=== PATIENT | male | born 1980 | race Caucasian/White ===

== ENCOUNTER 2019-06-05 12:42 | Emergency (ER) | payer OTHER ==
--- NOTE | 2019-06-05 13:48 | ED ---
Back Pain - HPI Summary HPI Summary: The patient is a 38 y/o M presenting to [facility] with a chief complaint of sudden onset lower back pain onset two days ago. He reports that he was making the bed and is unsure what happened but had sudden onset low midline back pain that caused inability to walk yesterday, but he was able to get up today. The pain does not radiate into his legs, but it is aggravated with standing and alleviated with sitting. Currently while sitting his pain is rated 4/10 in severity but increases to 10/10 with movement. He denies any difficulty urinating or passing stool, fevers, chills, or numbness or weakness in the lower extremities. He has used Ibuprofen and Tylenol for pain treatment to little relief. No PMHx. Nonsmoker, rare EtOH, no substance use. Medications reviewed. Allergies noted. - History of Current Complaint Chief Complaint: EDBackInjuryPain Stated Complaint: BACK PAIN Time Seen by Provider: 06/05/19 13:36 Hx Obtained From: Patient Onset/Duration: Sudden Onset, Lasting Days - two, Still Present Onset/Duration: Started Days Ago, Still Present Back Pain Location: Is Discrete @ - lower back Severity Initially: Severe Severity Currently: Moderate Pain Intensity: 4 - while sitting at rest Pain Scale Used: 0-10 Numeric Character: Sharp Aggravating Symptom(s): Movement - sitting to standing Alleviating Symptom(s): Rest Associated Signs And Symptoms: Negative: Fever, Weakness, Numbness, Other - chills, difficulty urinating or passing stool - Allergies/Home Medications Allergies/Adverse Reactions: Allergies Allergy/AdvReac Type Severity Reaction Status Date / Time No Known Allergies Allergy Verified 06/05/19 13:02 PMH/Surg Hx/FS Hx/Imm Hx Endocrine/Hematology History: Denies: Hx Diabetes Cardiovascular History: Denies: Hx Hypercholesterolemia, Hx Myocardial Infarction - Surgical History Surgical History: None Surgery Procedure, Year, and Place: none Infectious Disease History: No Infectious Disease History: Denies: Traveled Outside the [place] in Last 30 Days - Family History Known Family History: Negative: Cardiac Disease, Hypertension, Diabetes - Social History Alcohol Use: Rare Hx Substance Use: No Substance Use Type: Reports: None Hx Tobacco Use: No Smoking Status (MU): Never Smoked Tobacco Review of Systems Negative: Fever, Chills Negative: Other - inability to pass stool Negative: other - inability to urinate Positive: Other - low back pain causing pain with ambulation Negative: Weakness - in lower extremities, Numbness - in lower extremites All Other Systems Reviewed And Are Negative: Yes Physical Exam - Summary Physical Exam Summary: VITAL SIGNS: Reviewed. GENERAL: Patient is a well-developed and nourished male who is lying comfortable in the stretcher. Patient is not in any acute respiratory distress. HEAD AND FACE: No signs of trauma. No ecchymosis, hematomas or skull depressions. No sinus tenderness. EYES: PERRLA, EOMI x 2, No injected conjunctiva, no nystagmus. EARS: Hearing grossly intact. Ear canals and tympanic membranes are within normal limits. MOUTH: Oropharynx within normal limits. NECK: Supple, trachea is midline, no adenopathy, no JVD, no carotid bruit, no c- spine tenderness, neck with full ROM. CHEST: Symmetric, no tenderness at palpation. LUNGS: Clear to auscultation bilaterally. No wheezing or crackles. CVS: Regular rate and rhythm, S1 and S2 present, no murmurs or gallops appreciated. ABDOMEN: Soft, non-tender. No signs of distention. No rebound, no guarding, and no masses palpated. Bowel sounds are normal. BACK: Some vertebral tenderness in the right paraspinal muscles of the lumbar spine, Straight leg test positive at 60 degrees mostly in the left. EXTREMITIES: FROM in all major joints, no edema, no cyanosis or clubbing. NEURO: Alert and oriented x 3. No acute neurological deficits. Speech is normal and follows commands. SKIN: Dry and warm. Triage Information Reviewed: Yes Vital Signs On Initial Exam: Initial Vitals Temp Pulse Resp BP Pulse Ox 99.6 F 97 18 129/88 98 06/05/19 13:01 06/05/19 13:01 06/05/19 13:01 06/05/19 13:01 06/05/19 13:01 Vital Signs Reviewed: Yes Procedures - Sedation Patient Received Moderate/Deep Sedation with Procedure: No Diagnostics - Vital Signs Vital Signs Temp Pulse Resp BP Pulse Ox 06/05/19 13:01 99.6 F 97 18 129/88 98 - Laboratory Result Diagrams: 06/05/19 14:51 Lab Statement: Any lab studies that have been ordered have been reviewed, and results considered in the medical decision making process. - Radiology Lumbar Spine X-Ray Radiology Interpretation Completed By: Radiologist Summary of Radiographic Findings: Impression: Normal radiographic series of the thoracic and lumbar spine. ED physician has reviewed this report. Thoracic Spine X-Ray Radiology Interpretation Completed By: Radiologist Summary of Radiographic Findings: Impression: Normal radiographic series of the thoracic and lumbar spine. ED physician has reviewed this report. Re-Evaluation - Re-Evaluation First Eval Re-Evaluation Time: 17:05 Change: Improved Comment: Patient's pain has decreased. He is able to ambulate well. Back Pain Course/Dx - Course Assessment/Plan: This patient is a 38-year-old male who presents to the emergency department with a chief complaint of lower back pain. Patient denies any urinary or fecal dysfunction. Denies any weakness or numbness in the lower extremities. The pain stays in the lower back. Patient does not have a history of trauma or heavy lifting. In the ED course, the patient was given Norflex, Toradol, Morphine and Decadron. X-rays of the lumbar and thoracic spine negative for an acute fracture dislocation. After the patient was given these medications, the patient reports that he is feeling a lot better. The patient is able to ambulate without any significant pain. Patient reports the pain is only 2 out of 10. The patient is ambulatory, and he is walking out of the emergency room without any canes or walkers. Patient was instructed to return to the emergency department if he develops any urinary or fecal dysfunction, or any of the symptoms return or worsen. The patient understands and agrees. - Diagnoses Differential Diagnosis/HQI/PQRI: Positive: Herniated Disc, Strain, Sprain Provider Diagnoses: Back pain Discharge ED - Sign-Out/Discharge Documenting (check all that apply): Patient Departure - Patient will be dischargedhome. - Discharge Plan Condition: Stable Disposition: HOME Prescriptions: HYDROcodone/ACETAMIN 5-325 MG* [Sanderson 5-325 TAB*] 1 tab PO Q6H PRN #10 tab MDD 4 PRN Reason: Pain Ibuprofen TAB* [Motrin TAB* 800 MG] 800 mg PO Q8H PRN #30 tab PRN Reason: Pain Methocarbamol TAB* [Robaxin 500 MG TAB*] 500 mg PO TID PRN #12 tab PRN Reason: Spasms - Back methylPREDNISolone [Medrol Dosepak 4 MG*] 4 mg PO .SEE EMILY INSTRUCTION #1 emily Patient Education Materials: Back Pain (ED), Lower Back Exercises (ED) Referrals: Oscar Tobias MD [Primary Care Provider] - 3 Days Additional Instructions: Please take medications as prescribed. Follow up with your primary care provider in 2-3 days. Return to the emergency department for any new or worsening symptoms. - Billing Disposition and Condition Condition: STABLE Disposition: Home - Attestation Statements Document Initiated by Mary Louibe: Yes Documenting Scribe: Bethanie Humphries Provider For Whom Carisa is Documenting (Include Credential): Dr. Stas Figueroa MD Scribe Attestation: Bethanie Yu, scribed for Dr. Stas Figueroa MD on 06/05/19 at 1817. Scribe Documentation Reviewed: Yes Provider Attestation: The documentation as recorded by the Bethanie marquez accurately reflects the service I personally performed and the decisions made by me, Dr. Stas Figueroa MD Status of Scribe Document: Viewed
[2019-06-05] MEDS ORDERED: Morphine 4 MG/ML VIAL (1 ml) 4 MG/ML VIAL IV ONE (13:53)
[2019-06-05] MEDS ORDERED: Ketorolac INJ* 30 MG/ML 1 ML VIAL IV PUSH ONE (13:53)
[2019-06-05] MEDS ORDERED: Orphenadrine Citrate IV* 30 MG/ML 2 ML VIAL IV ONE (13:53)
[2019-06-05] MEDS ORDERED: Dexamethasone IV* 4 MG/ML 1 ML (4 MG) IV SLOW PU ONE (13:53)
[2019-06-05 14:57] LABS: ABS Eosinophils 0.1 10^3/ul (0-0.6); ABS Lymphocytes 1.8 10^3/ul (1.0-4.8); ABS Monocytes 0.6 10^3/ul (0-0.8); ABS Neutrophils 5.8 10^3/ul (1.5-7.7); Eosinophil % 0.6 %; Hematocrit 48 % (42-52); Lymphocyte % 22.3 %; Mean Corpuscular HGB Conc 35 g/dL (31-36); Mean Corpuscular Hemoglobin 31 pg (27-31); Mean Corpuscular Volume 89 fL (80-94); Mean Platelet Volume 8.7 fL (7.4-10.4); Nucleated Red Blood Cells % 0.1; Platelet Count 207 10^3/uL (150-450); Red Blood Count 5.41 10^6 /uL (4.18-5.48); Red Cell Distribution Width 12 % (10-15); White Blood Count 8.3 10^3/uL (3.5-10.8)
[2019-06-05 15:16] LABS: C Reactive Protein < 1.00 mg/L (<8.01); Uric Acid 4.3 mg/dL (4.4-7.6)
[2019-06-05 16:33] LABS: Erythrocyte Sed Rate 0 mm/Hr (0-14)
[2019-06-05 16:41] LABS: Urine Appearance Cloudy; Urine Bilirubin Negative (Negative); Urine Blood Negative (Negative); Urine Color Yellow; Urine Glucose Negative (Negative); Urine Ketones Negative (Negative); Urine Nitrite Negative (Negative); Urine Protein Negative (Negative); Urine Specific Gravity 1.017 (1.010-1.030); Urine Urobilinogen Negative (Negative)
[2019-06-05 17:40] VITALS: BP 126/53
== END 2019-06-05 17:20 | disposition home or self-care (01) ==
LOC: ED 12:42
DX: M54.9 Dorsalgia, unspecified (principal)
CPT/HCPCS: 36415; 72070; 72100; 81003; 84550; 85025; 85652; 86140; 96374; 96375; 99283; J1100; J1885; J2270; J2360